=== PATIENT | male | born 1935 | race Caucasian/White ===

== ENCOUNTER 2016-06-08 11:04 | Emergency (ER) | payer OTHER ==
[~2016-06-08] VITALS: Ht 170.2 cm; Wt 88.4 kg
[2016-06-08] VITALS (8 sets, daily range): BP systolic 126–178; BP diastolic 47–102
[2016-06-08 11:27] LABS: EOSINOPHIL (%) 1.6 % (0-5); EOSINOPHIL COUNT 0.1 K/uL (0-0.3); HEMATOCRIT 35.3 % (38.0-50.0); IMMATURE GRANULOCYTE (%) 0.1 % (0.0-0.7); IMMATURE GRANULOCYTE COUNT 0.1 K/uL; LYMPHOCYTE COUNT 1.1 K/uL (1.0-2.8); MCH 31.9 PG (29.0-34.0); MCHC 32.9 G/DL (30.0-36.0); MEAN PLAT.VOLUME 9.3 uM^3 (9.0-12.4); MONOCYTE (%) 6.9 % (3-12); MONOCYTE COUNT 0.5 K/uL (0-0.8); NEUTROPHIL (%) 77.4 % (45-76); NEUTROPHIL COUNT 5.9 K/uL (1.8-6.4); PLATELET COUNT 359 K/uL (156-360); RBC DIS.WIDTH-CV 13.8 % (11.8-14.6); RBC DIS.WIDTH-SD 46.3 % (39-53); RED BLOOD COUNT 3.64 M/uL (4.00-5.50); WHITE BLOOD COUNT 7.6 K/uL (4.1-10.2)
[2016-06-08 11:28] LABS: POINT-OF-CARE METER ID UU13113702
[2016-06-08] MEDS ORDERED: PRAVASTATIN SOD40 MG PO (11:38)
[2016-06-08 11:40] LABS: CHLORIDE 110 mEq/L (99-109); POTASSIUM 4.3 mEq/L (3.7-5.4); SODIUM 143 mEq/L (136-147)
[2016-06-08 11:41] LABS: MAGNESIUM 1.9 mg/dL (1.3-2.7)
[2016-06-08] MEDS ORDERED: LYRICA50 MG PO (11:41)
[2016-06-08] MEDS ORDERED: LISINOPRIL20 MG PO (11:41)
[2016-06-08 11:42] LABS: GLUCOSE 210 mg/dL (70-99)
[2016-06-08] MEDS ORDERED: LO-DOSE ASPIRIN81 M2 PO (11:42)
[2016-06-08 11:43] LABS: D-DIMER ELISA > 4.00 mg/L FEU (< 0.57); INTER. NORMALIZED RATIO 1.1; PROTHROMBIN TIME 10.7 (9.2-11.2); PTT 26.6 (25-32)
[2016-06-08] MEDS ORDERED: NOVOLOG MI100 UNIT/M SC (11:43)
[2016-06-08] MEDS ORDERED: VITAMIN D-32000 UNI2 PO (11:43)
[2016-06-08 11:44] LABS: ANION GAP 10 MEQ/L (2-14)
[2016-06-08 11:46] LABS: GFR ESTIMATE (CALCULATED) > 59 mL/min/
[2016-06-08 11:47] LABS: UREA NITROGEN (BUN) 24 mg/dL (9-23)
[2016-06-08 11:49] LABS: TROP-I INTERPRETATION NEGATIVE; TROPONIN-I < 0.01 ng/mL (0.0-0.30)
[2016-06-08 18:26] LABS: TROP-I INTERPRETATION NEGATIVE; TROPONIN-I 0.01 ng/mL (0.0-0.30)
[2016-06-08 21:39] LABS: POINT-OF-CARE METER ID UU13113700
[2016-06-09 00:48] LABS: TROP-I INTERPRETATION NEGATIVE; TROPONIN-I 0.01 ng/mL (0.0-0.30)
[2016-06-09 04:32] VITALS: BP 129/60
[2016-06-09 05:13] LABS: POINT-OF-CARE METER ID UU13113700
[2016-06-09 08:37] VITALS: BP 155/65
== END 2016-06-09 10:23 | disposition home or self-care (01) ==
LOC: EME 11:04 → EDOF 14:09 → 5WEST 14:09 → EDOF 14:09 → 5WEST 14:09
PROVIDERS: Emergency Medicine; Hospitalist
DX: R07.9 Chest pain, unspecified (principal); E11.9 Type 2 diabetes mellitus without complications; I10 Essential (primary) hypertension; E78.5 Hyperlipidemia, unspecified; Z79.4 Long term (current) use of insulin; Z85.46 Personal history of malignant neoplasm of prostate; Z87.891 Personal history of nicotine dependence
CPT/HCPCS: 71010; 71275; 80048; 82948; 83735; 84484; 85025; 85379; 85610; 85730; 93005; 93970; 99281; 99285; G0378; J1650; J1815; J7030

== ENCOUNTER 2016-07-12 10:50 | Emergency (ER) | payer OTHER ==
[~2016-07-12] VITALS: Ht 170.2 cm; Wt 89.9 kg
[~2016-07-12 10:50] MED LIST: LISINOPRIL20 MG PO; LO-DOSE ASPIRIN81 M2 PO; LYRICA50 MG PO; NOVOLOG MI100 UNIT/M SC; PRAVASTATIN SOD40 MG PO; VITAMIN D-32000 UNI2 PO
[2016-07-12 12:07] LABS: ADD MIUA? NO; BILIRUBIN NEGATIVE; BLOOD NEGATIVE; COLOR YELLOW ((YELLOW)); GLUCOSE (STRIP) >=500; KETONES NEGATIVE; LEUKOCYTES NEGATIVE; NITRITE NEGATIVE; PROTEIN (STRIP) 30; SPECIFIC GRAVITY 1.015 (1.000-1.030); UROBILINOGEN 0.2 MG/DL (0.2-1.0)
[2016-07-12] MEDS ORDERED: BICALUTAMIDE50 MG PO (12:49)
[2016-07-12] MEDS ORDERED: NOVOLOG MI100 UNIT/M SC (12:50)
[2016-07-12] MEDS ORDERED: VALIUM2 MG PO (12:54)
[2016-07-12 13:02] VITALS: BP 154/88
== END 2016-07-12 13:04 | disposition home or self-care (01) ==
LOC: EME 10:50
PROVIDERS: Nurse Practitioner Family
DX: M62.830 Muscle spasm of back (principal); M54.5 Low back pain; Z85.46 Personal history of malignant neoplasm of prostate; Z79.82 Long term (current) use of aspirin; Z87.891 Personal history of nicotine dependence
CPT/HCPCS: 72131; 74176; 81003; 99281; 99284

== ENCOUNTER 2016-08-05 01:30 | Emergency (ER) | payer OTHER ==
[~2016-08-05] VITALS: Ht 170.2 cm; Wt 90.6 kg
[~2016-08-05 01:30] MED LIST changes: +BICALUTAMIDE50 MG PO; +VALIUM2 MG PO
[2016-08-05 03:50] LABS: ADD MIUA? NO; BILIRUBIN NEGATIVE; BLOOD NEGATIVE; COLOR YELLOW ((YELLOW)); GLUCOSE (STRIP) >=500; KETONES NEGATIVE; LEUKOCYTES NEGATIVE; NITRITE NEGATIVE; PROTEIN (STRIP) 30; SPECIFIC GRAVITY 1.016 (1.000-1.030); UCUL ADDED? NO; UROBILINOGEN 0.2 MG/DL (0.2-1.0)
[2016-08-05] MEDS ORDERED: TRAMADOL HCL50 MG PO (04:02)
[2016-08-05 04:13] VITALS: BP 142/70
== END 2016-08-05 04:29 | disposition home or self-care (01) ==
LOC: EME 01:30
PROVIDERS: Emergency Medicine
DX: M54.5 Low back pain (principal); G89.29 Other chronic pain; M51.36 Other intervertebral disc degeneration, lumbar region; S33.5XXA Sprain of ligaments of lumbar spine, initial encounter; X58.XXXA Exposure to other specified factors, initial encounter; I10 Essential (primary) hypertension; Z79.4 Long term (current) use of insulin; Z79.82 Long term (current) use of aspirin
CPT/HCPCS: 72110; 81003; 99281; 99284

== ENCOUNTER 2016-09-07 07:13 | Observation (INO) | payer OTHER ==
[~2016-09-07] VITALS: Ht 170.2 cm; Wt 88.0 kg
[~2016-09-07 07:13] MED LIST changes: +TRAMADOL HCL50 MG PO
[2016-09-07 08:15] LABS: EOSINOPHIL (%) 1.9 % (0-5); EOSINOPHIL COUNT 0.1 K/uL (0-0.3); HEMATOCRIT 35.4 % (38.0-50.0); IMMATURE GRANULOCYTE (%) 0.3 % (0.0-0.7); INSTRUMENT ABS NEUTROPHIL CT 5.1 K/uL; LYMPHOCYTE COUNT 1.1 K/uL (1.0-2.8); MCH 31.7 PG (29.0-34.0); MCHC 32.5 G/DL (30.0-36.0); MCV 97.5 FL (86-99); MEAN PLAT.VOLUME 8.7 uM^3 (9.0-12.4); MONOCYTE (%) 7.2 % (3-12); MONOCYTE COUNT 0.5 K/uL (0-0.8); NEUTROPHIL (%) 73.9 % (45-76); NEUTROPHIL COUNT 5.1 K/uL (1.8-6.4); PLATELET COUNT 415 K/uL (156-360); RBC DIS.WIDTH-CV 13.3 % (11.8-14.6); RBC DIS.WIDTH-SD 47.9 % (39-53); RED BLOOD COUNT 3.63 M/uL (4.00-5.50); WHITE BLOOD COUNT 6.9 K/uL (4.1-10.2)
[2016-09-07 08:27] LABS: D-DIMER ELISA 3.78 mg/L FEU (< 0.57); INTER. NORMALIZED RATIO 1.1; PTT 27.8 (25-32)
[2016-09-07 08:51] LABS: TROP-I INTERPRETATION NEGATIVE; TROPONIN-I < 0.01 ng/mL (0.0-0.30)
[2016-09-07 10:30] LABS: ANION GAP 11 MEQ/L (2-14); CHLORIDE 106 MEQ/L (99-109); GFR ESTIMATE (CALCULATED) > 59 mL/min/; GLUCOSE 162 mg/dL (70-99); POTASSIUM 4.7 MEQ/L (3.7-5.4); SAMPLE HEMOLYSIS CHECK 0; SAMPLE ICTERIC CHECK 0; SAMPLE LIPEMIA CHECK 0; SODIUM 141 MEQ/L (136-147); UREA NITROGEN (BUN) 18 mg/dL (9-23)
[2016-09-07 13:47] LABS: POINT-OF-CARE METER ID UU13113702
[2016-09-07] MEDS ORDERED: NOVOLOG MI100 UNIT/4 SC ×2 (13:48)
[2016-09-07] MEDS ORDERED: TRAMADOL HCL50 MG PO (13:50)
[2016-09-07] MEDS ORDERED: TYLENOL REGULA325 MG PO (13:50)
[2016-09-07] MEDS ORDERED: METAXALONE800 MG PO (13:50)
[2016-09-07 15:09] VITALS: BP 174/82
[2016-09-07 18:10] LABS: TROP-I INTERPRETATION NEGATIVE; TROPONIN-I < 0.01 ng/mL (0.0-0.30)
[2016-09-07 21:50] LABS: POINT-OF-CARE METER ID UU14162513
[2016-09-07 23:44] VITALS: BP 131/61
[2016-09-08 01:30] LABS: TROP-I INTERPRETATION NEGATIVE; TROPONIN-I < 0.01 ng/mL (0.0-0.30)
[2016-09-08 02:14] LABS: HDL CHOLESTEROL 41 MG/DL (Desirable>=40); LDL CHOLESTEROL 106 mg/dL (Desirable<100); NON-HDL CHOLESTEROL 126 mg/dL (Desirable<160); TOTAL CHOLESTEROL 167 mg/dL (Desirable<200); TRIGLYCERIDES 99 MG/DL (Normal: <150)
[2016-09-08 03:13] LABS: GLUCOSE 187 mg/dL (70-99)
[2016-09-08 08:15] VITALS: BP 158/67
== END 2016-09-08 12:01 | disposition home or self-care (01) ==
LOC: EME → EDBD 07:13 → EDOF 14:02 → 5WEST 14:02
PROVIDERS: Emergency Medicine; Hospitalist; Student in an Organized Health Care Education/Training Program
DX: R07.89 Other chest pain (principal); I27.82 Chronic pulmonary embolism; I87.2 Venous insufficiency (chronic) (peripheral); E11.9 Type 2 diabetes mellitus without complications; I10 Essential (primary) hypertension; D64.9 Anemia, unspecified; E78.5 Hyperlipidemia, unspecified; Z79.4 Long term (current) use of insulin; Z87.891 Personal history of nicotine dependence
CPT/HCPCS: 71010; 71275; 80048; 80061; 82948; 83880; 84484; 84999; 85025; 85379; 85610; 85730; 93005; 99281; 99285; G0378; J1650; J1815

== ENCOUNTER 2016-10-20 19:24 | Observation (INO) | payer OTHER ==
[~2016-10-20] VITALS: Ht 170.2 cm; Wt 88.1 kg
[~2016-10-20 19:24] MED LIST changes: +METAXALONE800 MG PO; +NOVOLOG MI100 UNIT/4 SC; +TYLENOL REGULA325 MG PO
[2016-10-20 20:17] LABS: EOSINOPHIL (%) 0.5 % (0-5); EOSINOPHIL COUNT 0.1 K/uL (0-0.3); HEMATOCRIT 35.6 % (38.0-50.0); IMMATURE GRANULOCYTE (%) 0.5 % (0.0-0.7); IMMATURE GRANULOCYTE COUNT 0.1 K/uL; INSTRUMENT ABS NEUTROPHIL CT 8.7 K/uL; LYMPHOCYTE COUNT 0.5 K/uL (1.0-2.8); MCH 31.1 PG (29.0-34.0); MEAN PLAT.VOLUME 8.5 uM^3 (9.0-12.4); MONOCYTE (%) 6.1 % (3-12); MONOCYTE COUNT 0.6 K/uL (0-0.8); NEUTROPHIL (%) 88.1 % (45-76); NEUTROPHIL COUNT 8.7 K/uL (1.8-6.4); PLATELET COUNT 399 K/uL (156-360); RBC DIS.WIDTH-CV 13.8 % (11.8-14.6); RBC DIS.WIDTH-SD 49.4 % (39-53); RED BLOOD COUNT 3.67 M/uL (4.00-5.50); WHITE BLOOD COUNT 9.8 K/uL (4.1-10.2)
[2016-10-20 20:27] LABS: INTER. NORMALIZED RATIO 1.1; PROTHROMBIN TIME 11.1 (9.2-11.2); PTT 26.3 (25-32)
[2016-10-20 20:29] LABS: CHLORIDE 110 mEq/L (99-109); POTASSIUM 4.3 mEq/L (3.7-5.4); SODIUM 143 mEq/L (136-147)
[2016-10-20 20:29] LABS: POINT-OF-CARE METER ID UU13113702
[2016-10-20 20:30] LABS: MAGNESIUM 1.9 mg/dL (1.3-2.7)
[2016-10-20 20:31] LABS: GLUCOSE 72 mg/dL (70-99)
[2016-10-20 20:32] LABS: ANION GAP 7 MEQ/L (2-14)
[2016-10-20 20:34] LABS: GFR ESTIMATE (CALCULATED) > 59 mL/min/
[2016-10-20 20:35] LABS: UREA NITROGEN (BUN) 22 mg/dL (9-23)
[2016-10-20 20:43] LABS: TROP-I INTERPRETATION NEGATIVE; TROPONIN-I < 0.01 ng/mL (0.0-0.30)
[2016-10-20 20:44] LABS: POINT-OF-CARE METER ID UU13113702
[2016-10-20 21:34] LABS: ADD MIUA? NO; BILIRUBIN NEGATIVE; BLOOD NEGATIVE; COLOR YELLOW ((YELLOW)); GLUCOSE (STRIP) NEGATIVE; KETONES NEGATIVE; LEUKOCYTES NEGATIVE; NITRITE NEGATIVE; PROTEIN (STRIP) NEGATIVE; SPECIFIC GRAVITY 1.016 (1.000-1.030); UCUL ADDED? NO; UROBILINOGEN 0.2 MG/DL (0.2-1.0)
[2016-10-20 23:19] LABS: POINT-OF-CARE METER ID UU13113702
[2016-10-20 23:59] VITALS: BP 152/67
[2016-10-21 01:57] LABS: POINT-OF-CARE METER ID UU13113700
[2016-10-21 02:46] LABS: POINT-OF-CARE METER ID UU13113831
[2016-10-21 03:05] VITALS: BP 127/62
[2016-10-21 03:42] LABS: MCH 31.4 PG (29.0-34.0); MCHC 32.4 G/DL (30.0-36.0); MCV 97.1 FL (86-99); PLATELET COUNT 388 K/uL (156-360); RBC DIS.WIDTH-CV 13.8 % (11.8-14.6); RBC DIS.WIDTH-SD 49.1 % (39-53); WHITE BLOOD COUNT 9.6 K/uL (4.1-10.2)
[2016-10-21 03:53] LABS: CHLORIDE 107 mEq/L (99-109); SODIUM 141 mEq/L (136-147)
[2016-10-21 03:57] LABS: ANION GAP 9 MEQ/L (2-14); TOTAL BILIRUBIN 0.3 mg/dL (0.0-1.0)
[2016-10-21 03:59] LABS: ALKALINE PHOSPHATASE 169 IU/L (3-129); GFR ESTIMATE (CALCULATED) > 59 mL/min/
[2016-10-21 04:00] VITALS: BP 127/62
[2016-10-21 04:00] LABS: UREA NITROGEN (BUN) 24 mg/dL (9-23)
[2016-10-21 04:04] LABS: TROP-I INTERPRETATION NEGATIVE; TROPONIN-I < 0.01 ng/mL (0.0-0.30)
[2016-10-21 04:06] LABS: GLUCOSE 248 mg/dL (70-99)
[2016-10-21 06:56] VITALS: BP 176/76
[2016-10-21 09:40] LABS: TROP-I INTERPRETATION NEGATIVE; TROPONIN-I < 0.01 ng/mL (0.0-0.30)
[2016-10-21 11:30] VITALS: BP 162/76
[2016-10-21] MEDS ORDERED: LEVEMIR100 UNIT/2 SC (11:35)
== END 2016-10-21 14:08 | disposition home health service (06) ==
LOC: EME → EDBD 19:24 → EME 19:24 → EDOF 22:06 → 5WEST 22:06
PROVIDERS: Emergency Medicine; Hospitalist; Internal Medicine
DX: E11.649 Type 2 diabetes mellitus with hypoglycemia without coma (principal); Z79.4 Long term (current) use of insulin; I10 Essential (primary) hypertension; R09.89 Other specified symptoms and signs involving the circulatory and respiratory systems; E78.5 Hyperlipidemia, unspecified
CPT/HCPCS: 71010; 80048; 80053; 81003; 82948; 83735; 84484; 85025; 85027; 85610; 85730; 93005; 99281; 99284; G0378; G0480; J1644